=== PATIENT | female | born 1995 | race Two or more races ===

== ENCOUNTER 2019-04-04 12:01 | Outpatient (CLI) | payer OTHER | END 2019-04-04 12:20 | disposition home or self-care (01) | LOC: SONOGRAMA 12:01 → MAMO-SONO 13:15 | DX: E03.8 Other specified hypothyroidism (principal); Z01.419 Encounter for gynecological examination (general) (routine) without abnormal findings; N92.5 Other specified irregular menstruation ==

== ENCOUNTER 2022-08-20 22:45 | Emergency (ER) | payer OTHER ==
[~2022-08-20] VITALS: Ht 165.1 cm; Wt 70.8 kg
[2022-08-20] MEDS ORDERED: ANTICONCEPTIVO (22:50)
[2022-08-21] MEDS ORDERED: KETO10TA2 PO (02:14)
[2022-08-21] MEDS ORDERED: AMOX-CLAV 875-1 EACH PO (02:14)
[2022-08-21] MEDS ORDERED: CENTANY30 GM TOP (02:14)
== END 2022-08-21 02:26 ==
LOC: ER 22:45
DX: S51.852A Open bite of left forearm, initial encounter (principal); W54.0XXA Bitten by dog, initial encounter; Y93.9 Activity, unspecified; Y92.89 Other specified places as the place of occurrence of the external cause; Y99.9 Unspecified external cause status